=== PATIENT | female | born 1945 | race Caucasian/White ===

== ENCOUNTER 2018-06-13 00:28 | Inpatient (IN) | payer MEDICARE, BC ==
[2018-06-12 15:02] LABS: INR 0.93
--- NOTE | 2018-06-12 22:21 | LEVENE H&P ---
DATE OF ADMISSION: June 13, 2018 IDENTIFICATION/CHIEF COMPLAINT Gloria is a 73-year-old woman with a chief complaint of left knee pain. HISTORY OF PRESENT ILLNESS Patient has a longstanding history of knee arthritis, progressively painful and debilitating, refractory to conservative care. Surgery is indicated to relieve symptoms after failure of nonoperative measures. PAST MEDICAL HISTORY Notable for history of: 1. DVT in the affected leg. 2. Sleep apnea. 3. Reactive airway disease. 4. Hypertension. 5. Diabetes. 6. History of grand mal seizure. 7. Kidneys injured from a septic episode. PAST SURGICAL HISTORY Notable for: 1. Hysterectomy. 2. Lumbar surgery. ALLERGIES 1. PENICILLIN and SULFA that caused rash. 2. TETRACYCLINE. 3. CIPRO. 4. ALTACE. 5. LEVAQUIN. CURRENT MEDICATIONS 1. Humalog and Lantus adjusted per sugar. 2. Imipramine 50 mg p.o. daily. 3. Triamcinolone ointment as directed. 4. Myrbetriq 50 mg p.o. daily. 5. Advair Diskus inhaler. 6. Metoprolol 25 mg p.o. daily. 7. Atorvastatin 40 mg p.o. daily. 8. Montelukast 10 mg p.o. daily. 9. Omeprazole 20 mg p.o. daily. SOCIAL HISTORY Negative for prior smoking; none presently. Denies alcohol abuse. REVIEW OF SYSTEMS Negative. FAMILY HISTORY Unremarkable. PHYSICAL EXAMINATION GENERAL: This is healthy female. HEENT: She is normocephalic, atraumatic. Extraocular muscles intact. NECK: Supple. LUNGS: Clear. HEART: Regular. ABDOMEN: Soft. ORTHOPEDIC: The left knee has crepitus throughout. She has an effusion present. Gross stability is good. Extensor function intact, stiff at end range. Radiographs demonstrate end-stage knee arthritis. ASSESSMENT Left knee end-stage degenerative joint disease, refractory to conservative care. PLAN Per patient request, will proceed with total knee arthroplasty. Nature of the procedure, risks, benefits, and the anticipated rehab course reviewed. Risks include but are not limited to , major medical or anesthetic complications, infection, neurovascular injury, blood transfusion, stiffness, scarring, fracture, tendon rupture, instability, implant loosening, migration or failure, persistent/recurrent pain, need for additional surgery, and other unforeseen. She understands and wishes to proceed. Signed permit was placed in the chart. No guarantees were given or implied. MTDD
[~2018-06-13] VITALS: Ht 158.8 cm; Wt 109.3 kg
[2018-06-13] VITALS (15 sets, daily range): BP systolic 58–150; BP diastolic 48–92
[~2018-06-13 00:28] MED LIST: ASPI-1471 PO; ATOR40TA24 PO; AZEL23SP NS; CAL25 PO; CEPH250C37 PO; FLUT1DIS28 IH; IMIP50TA33 PO; INSU100I30 SQ; INSU100V24 SQ; METO25TA93 PO; MIRA50TA PO; MONT10TA PO; OLOP2.5D5 OU; OMEP-137 PO; TRIA15CR40 TP
[2018-06-13] MEDS ORDERED: NORMOSOL R SOLN(*) 1000 ML BAG 1,000 ML IV PRN ×2 (07:45→11:20)
[2018-06-13] MEDS ORDERED: CLON INJ ONE (07:45)
[2018-06-13] MEDS ORDERED: EPI INJ ONE (07:45)
[2018-06-13] MEDS ORDERED: TRANEXAMIC AC 1000 MG/10ML SDV 1,000 MG in DEXTROSE 5% 50 ML BAG 50 ML IV ONE (07:45)
[2018-06-13] MEDS ORDERED: PREGABALIN 75 MG CAPSULE PO ONE (07:45)
[2018-06-13] MEDS ORDERED: CLINDAMYCIN 900 MG/D5W 50 ML 50 ML IVPB ONE (07:45)
[2018-06-13] MEDS ORDERED: ACETAMINOPHEN 500 MG TAB PO ONE (07:45)
[2018-06-13] MEDS ORDERED: [UNRECOGNIZED DRUG - OTHER] INJ ONE (07:45)
[2018-06-13] MEDS ORDERED: KET INJ ONE (07:45)
[2018-06-13] MEDS ORDERED: LIDOCAINE/SOD BICARB 8.4% SYR ID ONE (07:45)
[2018-06-13] MEDS ORDERED: ROPIVACAINE/EPI/CLONIDINE/KET 50 ML SYRINGE INJ ONE (07:45)
[2018-06-13] MEDS ORDERED: MIDAZOLAM 2 MG/2 ML VIAL IVP PRN (07:45)
[2018-06-13] MEDS ORDERED: VANCOMYCIN 1 GM VIAL ONE (08:15)
[2018-06-13] MEDS ORDERED: PROPOFOL EMUL(*) 10MG/ML 20 ML 20 ML ONE (08:34)
[2018-06-13] MEDS ORDERED: ONDANSETRON 4 MG/2 ML VIAL ONE (08:34)
[2018-06-13] MEDS ORDERED: DEXAMETHASONE SOD PHOS 10MG/ML ONE (08:34)
[2018-06-13] MEDS ORDERED: ROPIVACAINE 0.5% 20 ML VIAL ONE (08:35)
[2018-06-13] MEDS ORDERED: SUCCINYLCHOL CHL 200MG/10ML VL ONE (09:04)
[2018-06-13] MEDS ORDERED: ROCURONIUM BROM 10 MG/ML 10 ML ONE (09:04)
[2018-06-13] MEDS ORDERED: HYDROmorphone HCL 2 MG/ML SDV ONE (09:18)
[2018-06-13] MEDS ORDERED: SUGAMMADEX SOD 200 MG/2 ML SDV ONE (10:31)
[2018-06-13] MEDS ORDERED: FLUSH 10 ML SYR IVP PRN (11:20)
[2018-06-13] MEDS ORDERED: DIAZEPAM 5 MG TAB PO PRN (11:20)
[2018-06-13] MEDS ORDERED: diphenhydrAMINE 25 MG CAP PO PRN (11:20)
[2018-06-13] MEDS ORDERED: BISACODYL 10 MG SUPP PR PRN (11:20)
[2018-06-13] MEDS ORDERED: ZOLPIDEM TARTRATE 5 MG TAB PO PRN (11:20)
[2018-06-13] MEDS ORDERED: diphenhydrAMINE 50 MG/ML VIAL IVP PRN (11:20)
[2018-06-13] MEDS ORDERED: ACETAMINOPHEN 325 MG TAB PO PRN (11:20)
[2018-06-13] MEDS ORDERED: MAGNESIUM HYDROXIDE* 30ML UDCP PO PRN (11:20)
[2018-06-13] MEDS ORDERED: BENZOCAINE/MENTHOL 1 EACH LOZG PO PRN (11:20)
[2018-06-13] MEDS ORDERED: PROMETHAZINE 25 MG/ML 1 ML AMP IVP PRN (11:20)
[2018-06-13] MEDS ORDERED: fentaNYL CITR 100 MCG/2 ML AMP ONE (11:25)
--- NOTE | 2018-06-13 12:00 | RADIOLOGY IMAGING REPORT ---
FAC[place] [facility] [place] NAME: Gloria Rooney : 1945 MR: [id number] V: [id number] EXAM DATE: ORDERING PHYSICIAN: KATHARINA TREVINO TECHNOLOGIST: Location: [facility] Patient: Gloria Rooney : 1945 Visit/Account:[id number] Date of Sevice: 06/13/2018 Exam type: KNEE LIMITED LEFT History: POST OP Comparison: None. Findings: AP and lateral views the left knee demonstrate a left knee arthroplasty in good anatomic alignment. Soft tissue gas and skin kota project over the anterior aspect of the postoperative knee IMPRESSION: 1. As above Report Dictated By: Estefania Desir MD at 06/13/2018 11:53 AM Report E-Signed By: Estefania Desir MD at 06/13/2018 11:56 AM WSN:[id number]
[2018-06-13] MEDS ORDERED: CHOL1CRY4 MC (12:53)
[2018-06-13] MEDS ORDERED: IMIP10TA17 PO (12:53)
[2018-06-13] MEDS ORDERED: BUME0.5T10 PO (12:53)
[2018-06-13] MEDS ORDERED: CAL25 FT (12:53)
[2018-06-13] MEDS ORDERED: CYAN100088 PO (12:53)
--- NOTE | 2018-06-13 14:03 | Hospitalist Consultation ---
History of Present Illness Requesting Physician Dr. Ordoñez Reason for Consult Medical Management Chief Complaint s/p left knee replacement History of Present Illness She was admitted s/p left knee replacement. It is reported the surgery went well and without complication. History Problems: (1) GERD (gastroesophageal reflux disease) Status: Chronic (2) Hyperlipidemia Status: Chronic (3) Hypertension Status: Chronic (4) DEQUAN (obstructive sleep apnea) Status: Chronic (5) Seasonal allergies Status: Chronic (6) Type 2 diabetes mellitus Status: Chronic (7) Asthma Status: Chronic (8) CKD (chronic kidney disease) Status: Chronic (9) Peripheral neuropathy (10) Chronic UTI Status: Chronic (11) History of DVT (deep vein thrombosis) Status: Chronic Home Meds Reported Medications Cyanocobalamin (Vitamin B-12) (B-12) 1,000 Mcg Tablet.er, 1000 MCG PO DAILY 06/13/18 Cholecalciferol (Vitamin D3) (CHOLECALCIFEROL) 1 Gm Crystals, 3 GM MC DAILY 06/13/18 Calcitriol (CALCITRIOL) 0.25 Mcg Cap, 0.25 MCG FT DAILY, CAP 06/13/18 Bumetanide (BUMETANIDE) 0.5 Mg Tablet, 0.5 MG PO DAILY 06/13/18 Imipramine Hcl (IMIPRAMINE HCL) 10 Mg Tablet, 10 MG PO DAILY 06/13/18 Insulin Lispro 100 Un/Ml Vial (HUMALOG 100 U/ML VIAL) 100 Unit/1 Ml Vial, SQ DAILY PRN for SLIDING SCALE INSULIN, VIAL 06/09/18 Insulin Glargine 100 Un/Ml Pen (LANTUS SOLOSTAR PEN) 100 Unit/1 Ml Insuln.pen, 24 UNIT SQ PM, PEN 06/09/18 Insulin Glargine 100 Un/Ml Pen (LANTUS SOLOSTAR PEN) 100 Unit/1 Ml Insuln.pen, 14 UNIT SQ AM, PEN 06/09/18 Imipramine Hcl (IMIPRAMINE HCL) 50 Mg Tablet, 50 MG PO DAILY 06/09/18 Mirabegron (MYRBETRIQ) 50 Mg Tab.er.24h, 25 MG PO HS 06/09/18 Azelastine/Fluticasone (DYMISTA NASAL SPRAY) 23 Gm [place].pump, 23 GM NS DAILY 06/09/18 Cephalexin (KEFLEX) 250 Mg Capsule, 250 MG PO DAILY, #28 CAP 06/09/18 Calcitriol (CALCITRIOL) 0.25 Mcg Cap, 0.25 MCG PO DAILY, CAP 06/09/18 Metoprolol Tartrate (METOPROLOL TARTRATE) 25 Mg Tablet, 1 TAB PO BID, TAB 06/09/18 Fluticasone/Salmeterol (ADVAIR 250-50 DISKUS) 1 Each Disk.w.dev, 1 EACH IH BID 06/09/18 Olopatadine HCl (Olopatadine HCl) 0.2 % Drops, 1 DROP OU DAILY 06/09/18 Atorvastatin Calcium (LIPITOR) 40 Mg Tablet, 1 TAB PO QDAY, TAB 06/09/18 Aspirin (ASPIR 81) 81 Mg Tablet.dr, 81 MG PO QDAY, TAB 06/09/18 Omeprazole (OMEPRAZOLE) 20 Mg Tablet.dr, 20 MG PO QDAY, TAB 06/09/18 Discontinued Reported Medications Triamcinolone Acetonide 0.1% Cr 15 Gm Tube (TRIAMCINOLONE ACETONIDE 0.1% CREAM) 15 Gm Cream..g., 15 GM TP DAILY PRN for ITCHING, TUBE 06/09/18 Montelukast Sodium (SINGULAIR) 10 Mg Tablet, 1 TAB PO QDAY, TAB 06/09/18 Allergies: Coded Allergies: Penicillins (Verified Allergy, Severe, RASH, 06/09/18) ciprofloxacin (Verified Allergy, Severe, TENDON ISSUES, 06/09/18) levofloxacin (Verified Allergy, Severe, TENDON ISSUES (RUPTURE), 06/09/18) ramipril (Verified Allergy, Severe, THROAT SWELLING, 06/09/18) tetracycline (Verified Allergy, Severe, RASH, 06/09/18) Sulfa (Sulfonamide Antibiotics) (Verified Allergy, Unknown, RASH, HIVES, 06/09/18) erythromycin base (Verified Allergy, Unknown, 06/13/18) Hx Smoking: No Smoking Status: Never Smoker Exposure to Second Hand Smoke?: No Caffeine/Cups Per Day: OCCASIONAL Hx Alcohol Use: No Hx Substance Use Disorder: No Social Drug Use: Never History of IV Drug Use: No Review of Systems All Systems Reviewed/Normal: Yes, Except as Noted Exam Vital Signs Vital Signs Date Time Temp Pulse Resp B/P (MAP) Pulse Ox O2 Delivery O2 Flow Rate FiO2 06/13/18 12:34 97.4 65 16 116/64 (81) 99 Room Air General Appearance: Alert, Awake, No Acute Distress, Afebrile Neuro: No Gross deficits Cardiovascular: Regular Rate and Rhythm Respiratory: No Respiratory Distress, Clear to Auscultation Psych: Alert & Oriented X3, Appropriate Mood & Affect Assessment and Plan Problems: (1) Status post left knee replacement Status: Acute Assessment & Plan: She will be placed on Xarelto for DVT prophylaxis. She does have a history of DVT 2 years ago, spontaneous. (2) Type 2 diabetes mellitus Status: Chronic Assessment & Plan: She is on chronic treatment with Lantus and sliding scale insulin. Recently she has had two episodes of hypoglycemia, which have resulted in her confused and in the ER. She will get reduced doses of her usual insulin and will do AC/ HS blood glucose monitoring. (3) Hypertension Status: Chronic Assessment & Plan: She is on chronic treatment with Metoprolol. This has been restarted with hold parameters. (4) Asthma Status: Chronic Assessment & Plan: She is on chronic treatment with Advair inhaler. (5) DEQUAN (obstructive sleep apnea) Status: Chronic Assessment & Plan: She is on chronic treatment with CPAP. She did bring her own machine to use during admission. (6) CKD (chronic kidney disease) Status: Chronic Assessment & Plan: Her creatinine was 2.4 prior to surgery. She will get a BMP in the morning. (7) Hyperlipidemia Status: Chronic Assessment & Plan: She is on chronic treatment with Atorvastatin. (8) Seasonal allergies Status: Chronic Assessment & Plan: She is on chronic treatment with Dymista Nasal [place]. She will use her own medication during admission. (9) GERD (gastroesophageal reflux disease) Status: Chronic Assessment & Plan: She is on chronic treatment with Omeprazole. She will get Pr otonix during admission. (10) Chronic UTI Status: Chronic Assessment & Plan: She is on chronic treatment with Keflex. This will be held while she is getting IV antibiotics. (11) History of DVT (deep vein thrombosis) Status: Chronic Assessment & Plan: Spontaneous two years ago. Venous Thromboembolism Antithrombotics Is Pt On Any Antithrombotics?: Yes MARCO A GERMAN Jun 13, 2018 14:03
[2018-06-13] MEDS: CLINDAMYCIN 900 MG/D5W 50 ML 50 ML IVPB SCH (17:14)
[2018-06-13] MEDS: APAP/HYDROCODONE 325/7.5 TAB PO PRN (17:25)
[2018-06-13] MEDS: IBUPROFEN 800 MG TAB PO SCH (17:25)
[2018-06-13] MEDS: INSULIN HUM LISPRO 100 UN/ML 3 ML VIAL SUBQ PRN ×2 (17:31→21:57)
[2018-06-13] MEDS: SALMETEROL/FLUTIC 250/50 1 INH INH SCH (18:00)
--- NOTE | 2018-06-13 18:56 | OPERATIVE REPORT 1 ---
EVENT DATE: June 13, 2018 SURGEON: Maurilio Ordoñez MD ANESTHESIOLOGIST: Nate Shelby MD ANESTHESIA: General plus adductor canal block. SUSTAIN ENGINEER: Tavo Plaza PA-C PREOPERATIVE DIAGNOSIS Left knee degenerative joint disease. POSTOPERATIVE DIAGNOSIS Left knee degenerative joint disease. PROCEDURE PERFORMED Left total knee arthroplasty. ESTIMATED BLOOD LOSS Minimal. DRAINS None. SPECIMENS None. COMPLICATIONS None apparent. TOURNIQUET TIME 49 minutes IMPLANTS USED [employer] Incathlon knee system with a 2 left PS femur, a 3 standard tibial baseplate, a 31 mm universal, symmetric, all-polyethylene patellar button, and a 13 mm PS tibial tray liner. Polyethylene is X3. INDICATIONS Gloria is a 73-year-old woman with intractable pain and disability related to end-stage knee arthritis. Surgery is indicated to relieve symptoms after failure of nonoperative measures. DESCRIPTION OF PROCEDURE Patient taken to the operating room. She is placed supine on the operating table. General anesthesia is induced. Antibiotics are administered IV along with TXA. The left lower extremity is prepped and draped in the usual sterile fashion for orthopedic surgery. Limb is exsanguinated with an Esmarch bandage. Tourniquet is inflated to 300 mmHg. Midline longitudinal incision made, carried down through the skin and subcutaneous tissue to the extensor mechanism. Full- thickness flaps are developed far enough medially to allow medial parapatellar arthrotomy be performed. Patella is everted. Knee is brought into flexed position. Fat pad, anterior horns of the menisci, and the cruciate ligaments are debrided. A subperiosteal medial release is initiated in a titrated fashion to start to balance the knee. A step drill is used to enter the distal femur. A 10-inch long alignment guide is used to engage the isthmus. Cut set for 6 degrees of valgus relative to the anatomic axis. The 10 mm resection block is applied, pinned, and cuts made with an oscillating saw. AP sizing guide is applied to the distal femoral cut, positioned for 3 degrees of external rotation relative to the posterior condyles. Size 2 is optimal without risk of notching. The four-in-one cutting block is applied. The anterior, posterior, posterior chamfer, and anterior chamfer cuts are made respectively. PS block is applied and centered. Medial and lateral bone is removed from the box. Trial femur has nice fit. Attention is turned to tibial preparation. The extramedullary guide is applied, positioned for varus, valgus, posterior slope, and rotation. This is set to resect 9 mm from the relatively intact lateral tibial plateau. It is dropped down another millimeter or two to ensure an adequate cut. Block is pinned. Extramedullary alignment check is made and the cuts made with an oscillating saw. Gaps are balanced and symmetric with no additional releases required. The tibial baseplate is inserted along with the trial liner and trial femur. Knee is brought to extension. Patella is taken from the starting thickness of 21 to a residual of 14 with a patellar clamp and oscillating saw. The 31 provides optimum bony coverage without soft tissue overhang. Lug holes are drilled. It tends to track laterally, and after checking rotational alignment of the femoral and tibial components, I performed an inside-out lateral release to improve patellar tracking. Final tibial preparation consists of assuring appropriate rotational and translational positioning of the component. Boss is reamed. Fin is punched. Surfaces are lavaged. A mix of methacrylate is made and components cemented in a single stage. Once the cement is fully polymerized, tourniquet is deflated, and hemostasis is assured. Wound is copiously lavaged to remove all lose debris. The 13 PS tibial tray liner fills up the gap ideally, allowing the knee to drop to full extension without hyperextension, providing optimal soft tissue tension and stability. The tray is lavaged and dried. The liner is locked into the baseplate. Joint is reduced. Arthrotomy is closed in flexion with #2 Ethibond with vancomycin powder deep in the wound. The derm is closed with 3-0 Vicryl, skin with surgical kota. Xeroform 4 x 4's are applied as a dry, sterile dressing and compression wrap. The patient awakened from anesthesia and taken to the recovery room in stable condition having tolerated the procedure well. PLAN Plan is for standard [facility]KA re[facility] protocol. [facility]
[2018-06-13] MEDS: MIRABEGRON 25 MG ER TAB PO SCH (21:54)
[2018-06-13] MEDS: METOPROLOL TART 50 MG TAB PO SCH (21:55)
[2018-06-13] MEDS: INSULIN GLARGINE 100 U/ML 3 ML PEN SUBQ SCH (21:55)
[2018-06-13] MEDS: AZELASTINE SCH (21:56)
[2018-06-13] MEDS: FLUTICASONE SCH (21:56)
[2018-06-14 00:08] VITALS: BP 126/56
[2018-06-14] MEDS: IBUPROFEN 800 MG TAB PO SCH (01:41)
[2018-06-14] MEDS: CLINDAMYCIN 900 MG/D5W 50 ML 50 ML IVPB SCH ×2 (01:41→09:26)
[2018-06-14] MEDS: APAP/HYDROCODONE 325/7.5 TAB PO PRN ×3 (01:46→13:22)
[2018-06-14 02:44] VITALS: BP 123/62
[2018-06-14] MEDS: SALMETEROL/FLUTIC 250/50 1 INH INH SCH ×2 (05:42→17:28)
[2018-06-14 06:47] VITALS: BP 113/45
[2018-06-14] MEDS: INSULIN HUM LISPRO 100 UN/ML 3 ML VIAL SUBQ PRN ×4 (08:03→21:25)
[2018-06-14] MEDS: METOPROLOL TART 50 MG TAB PO SCH ×2 (09:00→21:22)
[2018-06-14] MEDS ORDERED: IMIPRAMINE HCL 25 MG TAB PO SCH ×2 (09:00→21:00)
[2018-06-14] MEDS: RIVAROXABAN 10 MG TAB PO SCH (09:23)
[2018-06-14] MEDS: PANTOPRAZOLE SOD 20 MG TABEC PO SCH (09:23)
[2018-06-14] MEDS: OLOPATADINE 0.1% OU SCH (09:23)
[2018-06-14] MEDS: ATORVASTATIN 40 MG TAB PO SCH (09:23)
[2018-06-14] MEDS: AZELASTINE SCH ×2 (09:26→21:23)
[2018-06-14] MEDS: FLUTICASONE SCH ×2 (09:26→21:23)
[2018-06-14] MEDS: INSULIN GLARGINE 100 U/ML 3 ML PEN SUBQ SCH ×2 (09:39→21:23)
--- NOTE | 2018-06-14 12:52 | Hospitalist Progress Note ---
Subjective Progress Notes Subjective She was noted to have hyperkalemia on her labs this morning. She denies any symptoms or problems this morning. Patient Complains of: Cardiovascular: No: Chest Pain Respiratory: No: Shortness of Breath Physical Exam Vital Signs Date Time Temp Pulse Resp B/P (MAP) Pulse Ox O2 Delivery O2 Flow Rate FiO2 06/14/18 06:47 96.1 78 16 113/45 (67) 94 Nasal Cannula 2.0 Intake and Output 06/14/18 06:58 Intake Total 1850 ml Balance 1850 ml Intake Oral 200 ml IV Total 1650 ml # Voids 3 General Appearance: Alert, Awake, No Acute Distress, Afebrile Neuro: No Gross deficits Cardiovascular: Regular Rate and Rhythm Respiratory: No Respiratory Distress, Clear to Auscultation GI: Soft and Non-Tender Psych: Alert & Oriented X3, Appropriate Mood & Affect Result Diagram: 06/14/18 7755 Assessment and Plan Problems: (1) Status post left knee replacement Status: Acute Assessment & Plan: She will be placed on Xarelto for DVT prophylaxis. She does have a history of DVT 2 years ago, spontaneous. (2) Type 2 diabetes mellitus Status: Chronic Assessment & Plan: She is on chronic treatment with Lantus and sliding scale insulin. Recently she has had two episodes of hypoglycemia, which have resulted in her confused and in the ER. She will resume her doses of her usual long a cting insulin and will do AC/ HS blood glucose monitoring. She will increase to sliding scale insulin #3 today secondary to high blood glucoses. (3) Hypertension Status: Chronic Assessment & Plan: She is on chronic treatment with Metoprolol. This has been restarted with hold parameters. (4) Asthma Status: Chronic Assessment & Plan: She is on chronic treatment with Advair inhaler. (5) DEQUAN (obstructive sleep apnea) Status: Chronic Assessment & Plan: She is on chronic treatment with CPAP. She did bring her own machine to use during admission. (6) CKD (chronic kidney disease) Status: Chronic Assessment & Plan: Her creatinine was 2.4 prior to surgery. She will get a BMP in the morning. (7) Hyperlipidemia Status: Chronic Assessment & Plan: She is on chronic treatment with Atorvastatin. (8) Seasonal allergies Status: Chronic Assessment & Plan: She is on chronic treatment with Dymista Nasal [place]. She will use her own medication during admission. (9) GERD (gastroesophageal reflux disease) Status: Chronic Assessment & Plan: She is on chronic treatment with Omeprazole. She will get Protonix during admission. (10) Chronic UTI Status: Chronic Assessment & Plan: She is on chronic treatment with Keflex. This will be held while she is getting IV antibiotics. (11) History of DVT (deep vein thrombosis) Status: Chronic Assessment & Plan: Spontaneous two years ago. (12) Hyperkalemia Assessment & Plan: Likely secondary to CKD. EKG performed shows normal rhythm and T waves. She will get repeat BMP this afternoon. Exam Sepsis Risk: No Definite Risk MARCO A GERMANP Jun 14, 2018 12:52
--- NOTE | 2018-06-14 13:03 | EKG ---
FACILITY: [facility] PATIENT NAME: LISSETT JONES : [id number] MR: [id number] V: [id number] EXAM DATE: ORDERING PHYSICIAN: MARCO A GERMAN TECHNOLOGIST: Test Reason : LOW BP Blood Pressure : / mmHG Vent. Rate : 075 BPM Atrial Rate : 075 BPM P-R Int : 186 ms QRS Dur : 098 ms QT Int : 382 ms P-R-T Axes : 034 002 050 degrees QTc Int : 426 ms Sinus rhythm Borderline left axis Decreased R wave progression anteriorly No previous ECGs available Confirmed by ANYA ESPINOZA ([id number] on 06/14/2018 3:59:19 PM Referred By: BELINDA Confirmed By:ANYA ESPINOZA
[2018-06-14 13:16] VITALS: BP 134/56
[2018-06-14 14:50] VITALS: Ht 158.8 cm; Wt 109.3 kg
[2018-06-14 16:50] VITALS: BP 134/70
[2018-06-14 19:57] VITALS: BP 133/60
[2018-06-14] MEDS: MIRABEGRON 25 MG ER TAB PO SCH (21:22)
[2018-06-15 03:51] VITALS: BP 158/69
[2018-06-15] MEDS: APAP/HYDROCODONE 325/7.5 TAB PO PRN ×2 (04:30→14:29)
[2018-06-15] MEDS: SALMETEROL/FLUTIC 250/50 1 INH INH SCH (06:08)
[2018-06-15] MEDS ORDERED: HYDR-654 PO (07:08)
[2018-06-15] MEDS ORDERED: CELE-1 PO (07:08)
[2018-06-15] MEDS: INSULIN HUM LISPRO 100 UN/ML 3 ML VIAL SUBQ PRN ×2 (08:14→12:17)
[2018-06-15 08:22] VITALS: BP 167/69
[2018-06-15] MEDS: AZELASTINE SCH (09:00)
[2018-06-15] MEDS: FLUTICASONE SCH (09:00)
[2018-06-15] MEDS: ATORVASTATIN 40 MG TAB PO SCH (09:26)
[2018-06-15] MEDS: INSULIN GLARGINE 100 U/ML 3 ML PEN SUBQ SCH (09:26)
[2018-06-15] MEDS: PANTOPRAZOLE SOD 20 MG TABEC PO SCH (09:26)
[2018-06-15] MEDS: OLOPATADINE 0.1% OU SCH (09:27)
[2018-06-15] MEDS: RIVAROXABAN 10 MG TAB PO SCH (09:27)
[2018-06-15] MEDS: METOPROLOL TART 50 MG TAB PO SCH (09:27)
[2018-06-15] MEDS ORDERED: FLUTICASONE PROP 0.05% 16 GM ONE (09:35)
[2018-06-15] MEDS ORDERED: RIVA10TA PO (09:46)
--- NOTE | 2018-06-15 11:01 | Hospitalist Progress Note ---
Subjective Progress Notes Subjective She has no complaints this morning. She had no acute events overnight. Patient Complains of: Cardiovascular: No: Chest Pain Respiratory: No: Shortness of Breath Physical Exam Vital Signs Date Time Temp Pulse Resp B/P (MAP) Pulse Ox O2 Delivery O2 Flow Rate FiO2 06/15/18 09:39 90 Nasal Cannula 0.5 06/15/18 08:22 93 16 167/69 (101) 06/15/18 03:51 98.7 Intake and Output 06/15/18 06:59 Intake Total 1010 ml Balance 1010 ml Intake Oral 960 ml IV Total 50 ml # Voids 4 General Appearance: Alert, Awake, No Acute Distress, Afebrile Cardiovascular: Regular Rate and Rhythm Respiratory: No Respiratory Distress, Clear to Auscultation Psych: Alert & Oriented X3, Appropriate Mood & Affect Result Diagram: 06/15/18 2495 Assessment and Plan Problems: (1) Status post left knee replacement Status: Acute Assessment & Plan: She will be placed on Xarelto for DVT prophylaxis. She does have a history of DVT 2 years ago, spontaneous. (2) Type 2 diabetes mellitus Status: Chronic Assessment & Plan: She is on chronic treatment with Lantus and sliding scale insulin. Recently she has had two episodes of hypoglycemia, which have resulted in her confused and in the ER. She will resume her doses of her usual long acting insulin and will do AC/ HS blood glucose monitoring. She will increase her sliding scale insulin at home, she will follow up with her PCP within one week. (3) Hypertension Status: Chronic Assessment & Plan: She is on chronic treatment with Metoprolol. This were restarted with hold parameters. (4) Asthma Status: Chronic Assessment & Plan: She is on chronic treatment with Advair inhaler. (5) DEQUAN (obstructive sleep apnea) Status: Chronic Assessment & Plan: She is on chronic treatment with CPAP. She did bring her own machine to use during admission. (6) CKD (chronic kidney disease) Status: Chronic Assessment & Plan: Her creatinine was 2.4 prior to surgery. Creatinine 2.1 this morning. (7) Hyperlipidemia Status: Chronic Assessment & Plan: She is on chronic treatment with Atorvastatin. (8) Seasonal allergies Status: Chronic Assessment & Plan: She is on chronic treatment with Dymista Nasal [place]. She will use her own medication during admission. (9) GERD (gastroesophageal reflux disease) Status: Chronic Assessment & Plan: She is on chronic treatment with Omeprazole. She will get Protonix during admission. (10) Chronic UTI Status: Chronic Assessment & Plan: She is on chronic treatment with Keflex. (11) History of DVT (deep vein thrombosis) Status: Chronic Assessment & Plan: Spontaneous two years ago. (12) Hyperkalemia Assessment & Plan: Improved. Likely secondary to CKD. EKG performed shows normal rhythm and T waves. Potassium 4.9 this morning. Exam Sepsis Risk: No Definite Risk MARCO A GERMAN Jun 15, 2018 11:01
== END 2018-06-15 17:10 | disposition home health service (06) | DRG 470 ==
LOC: OR 00:28 → MED 12:30
PROVIDERS: ADMIT Orthopaedic Surgery; ATTEND Orthopaedic Surgery
PROC: 0SRD0J9 Replacement of Left Knee Joint with Synthetic Substitute, Cemented, Open Approach (ICD-10-PCS; principal; 2018-06-13 08:57)
PROC: 5A09357 Assistance with Respiratory Ventilation, Less than 24 Consecutive Hours, Continuous Positive Airway Pressure (ICD-10-PCS; 2018-06-13 08:57)
DX: M17.12 Unilateral primary osteoarthritis, left knee (principal); N39.0 Urinary tract infection, site not specified; K21.9 Gastro-esophageal reflux disease without esophagitis; I10 Essential (primary) hypertension; E87.5 Hyperkalemia; E78.5 Hyperlipidemia, unspecified; G47.33 Obstructive sleep apnea (adult) (pediatric); J45.909 Unspecified asthma, uncomplicated; E11.22 Type 2 diabetes mellitus with diabetic chronic kidney disease; I12.9 Hypertensive chronic kidney disease with stage 1 through stage 4 chronic kidney disease, or unspecified chronic kidney disease; N18.9 Chronic kidney disease, unspecified; E11.42 Type 2 diabetes mellitus with diabetic polyneuropathy; Z86.718 Personal history of other venous thrombosis and embolism; Z79.4 Long term (current) use of insulin; Z88.0 Allergy status to penicillin; Z88.2 Allergy status to sulfonamides; Z88.1 Allergy status to other antibiotic agents; Z88.8 Allergy status to other drugs, medicaments and biological substances; Z99.81 Dependence on supplemental oxygen; Z90.710 Acquired absence of both cervix and uterus
CPT/HCPCS: 36415; 36416; 76942; 82310; 82374; 82435; 82565; 82947; 82948; 84132; 84295; 84520; 85610; 86850; 86900; 86901; 93005; 94660; 97161; C1713; C1776; C9399; J0330; J1100; J1170; J1815; J2250; J2405; J2704; J2795; J3010; J3370; J3490; J7060